=== PATIENT | female | born 1955 | race Two or more races ===

== ENCOUNTER 2019-06-14 09:54 | Emergency (ER) | payer OTHER ==
[~2019-06-14] VITALS: Ht 160 cm; Wt 68.0 kg
[2019-06-14] MEDS ORDERED: LOSARTAN POTAS100 MG PO (10:42)
[2019-06-14] MEDS ORDERED: CHLORTHALIDONE PO (10:43)
[2019-06-14] MEDS ORDERED: AMLODIPINE-OLM1 EAC2 PO (10:43)
== END 2019-06-14 14:46 | disposition home or self-care (01) ==
LOC: ER 09:54
DX: K29.60 Other gastritis without bleeding (principal)